=== PATIENT | male | born 1990 | race Caucasian/White ===

== ENCOUNTER 2024-11-25 12:37 | Inpatient (IN) | payer MEDICAID ==
[~2024-11-25] VITALS: Ht 177.8 cm; Wt 83.9 kg
[2024-11-25] MEDS: IV NS 0.9% 1,000 ML BAG IV ONE (13:30)
[2024-11-25] MEDS ORDERED: ONDANSETRON HCL/PF 4 MG/2 ML VIAL ONE (13:30)
[2024-11-25] MEDS: ONDANSETRON HCL/PF 4 MG/2 ML VIAL IVP ONE (13:30)
[2024-11-25] MEDS: LORAZEPAM INJ 2 MG/ML VIAL IV ONE (13:30)
[2024-11-25] MEDS ORDERED: LORAZEPAM INJ 2 MG/ML VIAL ONE (13:30)
[2024-11-25 13:32] LABS: PLATELET COUNT (AUTO) 218 K/uL (150-450); RED BLOOD CELL COUNT(AUTO) 4.80 MIL/uL (4.5-6.0); RED CELL DISTRIBUTION WIDTH 14.4 % (11.5-15.0); WHITE BLOOD COUNT (AUTO) 7.5 K/uL (4.3-11.0)
[2024-11-25] MEDS ORDERED: IV NS 0.9% 250 ML IV ONE (13:40)
[2024-11-25] MEDS ORDERED: CT SWABBABLE VALVE TRANS SET 1 EA INFUS.SET MC ONE (13:40)
[2024-11-25] MEDS ORDERED: IOHEXOL-300 100 ML VIAL IV ONE (13:40)
[2024-11-25 13:59] LABS: INR 1.05 (0.91-1.10)
[2024-11-25 14:04] LABS: ASPARTATE AMINOTRANSFERASE 119.0 U/L (15-37); CALCIUM, SERUM 10.5 mg/dL (8.5-10.1); CREATININE 1.5 mg/dL (0.6-1.3); SODIUM SERUM 131.0 mmol/L (136-145); TOTAL PROTEIN, SERUM 9.8 g/dL (6.4-8.2); UREA NITROGEN, BLOOD 25.0 mg/dL (7-18)
[2024-11-25] MEDS ORDERED: POTASSIUM CL. PREMIX PERIPHER. 0 ML ONE (14:37)
[2024-11-25] MEDS: POTASSIUM CL. PREMIX PERIPHER. 50 ML IV SCH (14:45)
[2024-11-25 15:40] LABS: PHOSPHORUS 2.7 mg/dL (2.5-4.9)
[2024-11-25 16:10] LABS: ABG BASE EXCESS 13.1 mmol/L (-2.0-3.0); ABG OXYGEN SATURATION 95.9 % (94.0-98.0); ABG PCO2 39.5 mmHg (35.0-48.0); ABG PH 7.579 (7.350-7.450); ABG PO2 86.8 mmHg (83.0-108.0); ABG TOTAL HEMOGLOBIN 13.7 G/dL (13.5-17.5); FRACTIONATED INSPIRED OXYGEN 21.0 %; SITE, ABG LEFT RADIAL
[2024-11-25 16:30] VITALS: BP 140/83; TEMP 98.6; O2SAT 99
[2024-11-25] MEDS ORDERED: ONDANSETRON HCL/PF 4 MG/2 ML VIAL IVP PRN (17:30)
[2024-11-25] MEDS ORDERED: MAG HYDROX/AL HYDROX/SIMETH 30 ML UDC PO PRN (17:30)
[2024-11-25] MEDS ORDERED: Z GUARD REMEDY 4 OZ OINT TP PRN (17:30)
[2024-11-25] MEDS ORDERED: ACETAMINOPHEN 325 MG TABLET PO PRN (17:30)
[2024-11-25] MEDS ORDERED: MAGNESIUM HYDROXIDE 30 ML UDC PO PRN (17:30)
[2024-11-25] MEDS: IV NS 0.9% 1,000 ML IV SCH ×2 (18:22→20:15)
[2024-11-25] MEDS ORDERED: LORAZEPAM INJ 2 MG/ML VIAL IV PRN (19:30)
[2024-11-25] MEDS ORDERED: Thiamine 300 MG in IV D5W 50 ML IV ONE (19:30)
[2024-11-25 19:38] LABS: CALCIUM, SERUM 8.5 mg/dL (8.5-10.1); CREATININE 1.1 mg/dL (0.6-1.3); SODIUM SERUM 132.0 mmol/L (136-145); UREA NITROGEN, BLOOD 17.0 mg/dL (7-18)
[2024-11-25 20:00] VITALS: BP 143/78; TEMP 98.1; O2SAT 97
[2024-11-25] MEDS: THIAMINE IV ONE (20:17)
[2024-11-25] MEDS: D5W IV ONE (20:17)
[2024-11-25] MEDS: CHLORDIAZEPOXIDE HCL 25 MG CAPSULE PO SCH (20:26)
[2024-11-25] MEDS: SUCRALFATE 1 G/10 ML UDC PO SCH (20:44)
[2024-11-25] MEDS: CLONIDINE HCL 0.1 MG TABLET PO SCH (20:44)
[2024-11-25] MEDS: PANTOPRAZOLE 40 MG TABLET.DR PO SCH (20:44)
[2024-11-25] MEDS ORDERED: Potassium Chloride 40 MEQ in IV NS 0.9% 1,000 ML IV SCH (22:30)
[2024-11-25] MEDS ORDERED: POTASSIUM CL. PREMIX PERIPHER. 200 ML ONE (23:03)
[2024-11-25] MEDS: POTASSIUM CHLORIDE 20 MEQ TAB.PRT.SR PO ONE (23:15)
[2024-11-26] VITALS: BP 132/87; TEMP 98.1; O2SAT 96
[2024-11-26] MEDS ORDERED: IV PREMIX NS +20MEQ KCL 1 L IV ONE (00:20)
[2024-11-26] MEDS: Potassium Chloride 20 MEQ in IV NS 0.9% 1,000 ML IV SCH (00:41)
[2024-11-26 04:00] VITALS: BP 123/84; TEMP 98.1; O2SAT 99
[2024-11-26 06:11] LABS: PLATELET COUNT (AUTO) 135 K/uL (150-450); RED BLOOD CELL COUNT(AUTO) 4.08 MIL/uL (4.5-6.0); RED CELL DISTRIBUTION WIDTH 14.3 % (11.5-15.0); WHITE BLOOD COUNT (AUTO) 4.6 K/uL (4.3-11.0)
[2024-11-26 06:23] LABS: CALCIUM, SERUM 9.1 mg/dL (8.5-10.1); CREATININE 0.9 mg/dL (0.6-1.3); PHOSPHORUS 2.7 mg/dL (2.5-4.9); SODIUM SERUM 140.0 mmol/L (136-145); UREA NITROGEN, BLOOD 9.0 mg/dL (7-18)
[2024-11-26 06:27] LABS: LDL 137.0 mg/dL (0-99)
[2024-11-26 08:00] VITALS: BP 144/81; TEMP 97.7; O2SAT 97
[2024-11-26] MEDS: THIAMINE HCL 100 MG TABLET PO SCH (08:15)
[2024-11-26] MEDS: MULTIVITAMINS,THERAGRAN 1 UDTAB TABLET PO SCH (08:15)
[2024-11-26] MEDS: FOLIC ACID 1 MG TABLET PO SCH (08:15)
[2024-11-26] MEDS ORDERED: FOLI0.4T6 PO (10:01)
[2024-11-26] MEDS ORDERED: THIA100T74 PO (10:01)
[2024-11-26 12:00] VITALS: BP 141/92; TEMP 97.7; O2SAT 97
[2024-11-26 12:10] VITALS: BP 141/77
[2024-11-26] MEDS: SUCRALFATE 1 G TABLET PO SCH (12:11)
[2024-11-27 06:07] LABS: HEPATITIS B CORE AB, IgM Negative (Negative); HEPATITIS B CORE AB, TOTAL Negative (Negative); HEPATITIS B SURFACE AB (QUAL) Reactive (.)
== END 2024-11-26 16:00 | disposition home or self-care (01) | DRG 280 ==
LOC: ER 12:41 → MEDSG1 15:52 → TELE1 18:57 → MEDSG1 11-26 08:42
PROVIDERS: ADMIT Nurse Practitioner Acute Care; ATTEND Internal Medicine
DX: K70.10 Alcoholic hepatitis without ascites (principal); N17.9 Acute kidney failure, unspecified; S36.119A Unspecified injury of liver, initial encounter; E87.1 Hypo-osmolality and hyponatremia; E83.9 Disorder of mineral metabolism, unspecified; E87.3 Alkalosis; Y90.9 Presence of alcohol in blood, level not specified; D64.9 Anemia, unspecified; E86.9 Volume depletion, unspecified; E87.6 Hypokalemia; I10 Essential (primary) hypertension; K21.9 Gastro-esophageal reflux disease without esophagitis; E80.6 Other disorders of bilirubin metabolism; R74.01 Elevation of levels of liver transaminase levels; X58.XXXA Exposure to other specified factors, initial encounter; Y93.9 Activity, unspecified; Y92.89 Other specified places as the place of occurrence of the external cause; F10.239 Alcohol dependence with withdrawal, unspecified; M89.8X9 Other specified disorders of bone, unspecified site
CPT/HCPCS: 36415; 36600; 80048-TC; 80061-TC; 80076-TC; 82803-TC; 83690-TC; 83735-TC; 84100-TC; 84443-TC; 85025-TC; 85730-TC; 86704; 86705; 86706; 86707; 86803; 87081-TC; 87340; 87350; A4223; G0378; J2060; J2405; J3411; J3480; J3490; J7030; J7050; J7060; Q9967